=== PATIENT | female | born 1980 | race Two or more races ===

== ENCOUNTER 2021-05-18 16:56 | Emergency (ER) | payer OTHER ==
[2021-05-18 17:37] VITALS: BP 123/67; PULSE 77; TEMP 98.2; BMI 26.6
== END 2021-05-18 18:02 | disposition home or self-care (01) ==
LOC: FER 16:56
DX: S41.102A Unspecified open wound of left upper arm, initial encounter (principal)
CPT/HCPCS: 99283-25